=== PATIENT | female | born 1995 | race Caucasian/White ===

== ENCOUNTER 2020-03-17 08:19 | Emergency (ER) | payer BC, SELFPAY ==
--- NOTE | ~2020-03-17 | XR_ITS ---
EXAMINATION: XR hand RT min 3V EXAM DATE: 03/17/2020 08:50 INDICATION: Initial encounter following injury, with pain of the right hand, 2nd finger. Hyperextens ion. TECHNIQUE: Right hand frontal, lateral and oblique projections obtained and reviewed. There is no pr ior study for comparison. FINDINGS: Right metacarpal bones are unremarkable. There are no acute fractures or dislocations iden tified. There is no subcutaneous gas. The soft tissue is unremarkable. There are no radiopaque fo reign bodies. IMPRESSION: No acute osseous findings. Reviewed, dictated and finalized at location B. IMPRESSION: No acute osseous findings.
[2020-03-17 08:35] VITALS: BP 132/80; PULSE 80; RESP 16; TEMP 37.4; O2SAT 100
--- NOTE | 2020-03-17 08:51 | PC.NURSE ---
PT DECLINED ICE FOR COMFORT
--- NOTE | 2020-03-17 09:36 | ED.UPPEXIN ---
HPI - Extremity Injury (Upper) General Chief Complaint: Extremity Injury, Upper Stated Complaint: right hand injury Time Seen by Provider: 03/17/20 09:32 Source: patient and RN notes reviewed Mode of arrival: ambulatory Limitations: no limitations History of Present Illness HPI narrative: Patient presents today with an injury to her right hand that was sustained last night at home while she was carrying a door. A portion of her index finger got caught in a hole in a door when she dropped it, causing it to bed irregularly. She does report some tingling with movement. Currently rates her pain 7/10. She has been applying ice and taking Tylenol and ibuprofen with mild relief. MD complaint: injury to: right and finger Related Data Home Medications Medication Instructions Recorded Confirmed etonogestrel [Nexplanon] 1 implant SUBDERMAL ONCE 03/17/20 03/17/20 Allergies Allergy/AdvReac Type Severity Reaction Status Date / Time No Known Allergies Allergy Verified 03/17/20 09:00 Review of Systems Review of Systems: Narrative: CONSTITUTIONAL: Denies body aches, fever, chills, or sweats. EYES: Denies visual changes, redness, or discharge. ENT: Denies rhinorrhea, congestion, sore throat, or otalgia. CARDIOVASCULAR: Denies chest pain, palpitations, or edema. RESPIRATORY: Denies cough or dyspnea. GASTROINTESTINAL: Denies abdominal pain, nausea, vomiting, or diarrhea. GENITOURINARY: Denies dysuria or hematuria. SKIN: Denies rash, itching, or wounds. MUSCULOSKELETAL: Denies back pain, or myalgia. + Right first finger injury NEUROLOGIC: Denies headache, numbness, tingling, or weakness. PSYCH: Denies depression or anxiety. PMFSH Comments At time of signature, I have reviewed and agree with nursing past medical, surgical, social and family history unless otherwise noted. Please see nursing chart for further information. There is no relevant family history pertinent to the presenting complaint Exam Narrative: Exam Narrative: GENERAL: Well-appearing, well-nourished, and in no acute distress. HEAD: Normocephalic, atraumatic. EYES: EOMI. No redness or drainage. Conjunctivae normal. ENT: Mucous membranes pink and moist. NECK: Normal AROM. CHEST: No respiratory distress. EXTREMITIES: Right hand: Tenderness to the right second PIP and MCP, mostly palmar aspect. Scant swelling of the finger. Decreased range of motion due to pain. Distal sensation intact. Capillary refill normal. No pain in the remainder of the hand. SKIN: Warm, dry, no rash. Capillary refill normal. Normal skin turgor. NEURO: No focal deficits. Alert and oriented x3. Gait steady. PSYCH: Normal affect. No signs of depression or anxiety. Course Vital Signs Vital signs: Vital Signs Temperature 99.3 F 03/17/20 08:35 Pulse Rate 80 03/17/20 08:35 Respiratory Rate 16 03/17/20 08:35 Blood Pressure 132/80 03/17/20 08:35 Pulse Oximetry 100 03/17/20 08:35 Temperature 99.3 F 03/17/20 08:35 Pulse Rate 80 03/17/20 08:35 Respiratory Rate 16 03/17/20 08:35 Blood Pressure 132/80 03/17/20 08:35 Pulse Oximetry 100 03/17/20 08:35 Reviewed. Pt has been instructed to follow up with her PCP regarding her elevated blood pressure today. Procedures Orthopedic Splinting/Casting Injury #1: Splinting/Casting Date: 03/17/20 Splinting/Casting Time: 09:42 Side: right Upper Extremity Injury Location: finger Upper Extremity Immobilizer: aluminum form splint Pre-Procedure Neuro Vascular Exam: normal Post-Procedure Neuro Vascular Exam: normal MDM - Extremity Injury (Upper) Differential Diagnosis Differential diagnosis: Likely other (Finger fracture, finger sprain, contusion) Imaging Data Radiologist's impression: ITS Impressions Hand X-Ray 03/17/20 08:55 IMPRESSION: No acute osseous findings. Critical Care Time Critical Care Time Critical Care Time: No Discharge Hemal
== END 2020-03-17 09:50 | disposition home or self-care (01) ==
PROVIDERS: Emergency Provider Nurse Practitioner
DX: S63.610A Unspecified sprain of right index finger, initial encounter (principal); W23.1XXA Caught, crushed, jammed, or pinched between stationary objects, initial encounter
CPT/HCPCS: 29130; 73130; 99213; G0463

== ENCOUNTER 2020-06-12 08:25 | Emergency (ER) | payer BC, SELFPAY ==
[2020-06-12 08:30] VITALS: BP 118/71; PULSE 93; RESP 16; TEMP 36.8; O2SAT 100
--- NOTE | 2020-06-12 08:36 | ED.SKABFB ---
HPI - Skin/Abscess/Foreign Bdy General Chief complaint: Skin/Abscess/Foreign Body Stated complaint: hives rash Time Seen by Provider: 06/12/20 08:36 Source: patient and RN notes reviewed History of Present Illness HPI narrative: Patient is a 24-year-old female who presents the urgent care with complaints of an itchy red rash to the groin, upper thighs, lower abdomen and bilateral arms. Patient states that she noticed it on Tuesday. 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 Patient denies of any recent yardwork or known exposure. States that she has been taking Benadryl which is not helping. No other acute complaints. Denies any known fever. No acute distress noted. Patient aware of the plan of care. Some parts of this dictation were generated by voice recognition software and may contain typographical and/or grammatical inaccuracies. Related Data Home Medications Medication Instructions Recorded Confirmed etonogestrel [Nexplanon] 1 implant SUBDERMAL ONCE 03/17/20 06/12/20 Allergies Allergy/AdvReac Type Severity Reaction Status Date / Time No Known Allergies Allergy Verified 06/12/20 08:43 Review of Systems Review of Systems: Narrative: CONSTITUTIONAL: Denies fever, chills, or sweats. EYES: Denies visual changes, redness, or discharge. ENT: Denies rhinorrhea, congestion, sore throat, or otalgia. CARDIOVASCULAR: Denies chest pain, palpitations, or edema. RESPIRATORY: Denies cough or dyspnea. GASTROINTESTINAL: Denies abdominal pain, nausea, vomiting, or diarrhea. GENITOURINARY: Denies dysuria or hematuria. SKIN: Reports of itchy red rash to lower abdomen, groin, bilateral inner thighs and bilateral arms MUSCULOSKELETAL: Denies back pain, joint pain, or myalgia. NEUROLOGIC: Denies headache, numbness, or weakness. All other systems reviewed are negative, except as documented in HPI. [facility] Social History Social History Gender identity (if verbalized by the patient): Transgender Male Comments At the time of my signature, I reviewed and agree with the nursing past medical, surgical, social, and family history. There is no relevant family history pertinent to the patient complaint. Exam Narrative: Exam Narrative: GENERAL: This is a well-nourished, well-developed patient, in no apparent distress. Anxious HEAD: normocephalic, atraumatic. EYES: PERRL. Sclera clear/white. Vision is grossly intact. EARS: External ears normal NOSE: External nose normal with no obvious nasal discharge, nares without redness, no rhinorrhea. THROAT: Mucous membranes moist NECK: Neck supple SKIN: Papular erythemic pruritic rash noted to bilateral arms, erythemic urticaria noted to bilateral inner thighs, lower abdomen and groin NEURO: awake, alert, and oriented to person, place and time. There were no obvious focal neurologic abnormalities. EXTREMITIES: No clubbing, cyanosis, or edema. Course Vital Signs Vital signs: Vital Signs Temperature 98.2 F 06/12/20 08:30 Pulse Rate 93 06/12/20 08:30 Respiratory Rate 16 06/12/20 08:30 Blood Pressure 118/71 06/12/20 08:30 Pulse Oximetry 100 06/12/20 08:30 Temperature 98.2 F 06/12/20 08:30 Pulse Rate 93 06/12/20 08:30 Respiratory Rate 16 06/12/20 08:30 Blood Pressure 118/71 06/12/20 08:30 Pulse Oximetry 100 06/12/20 08:30 Reviewed MDM - Skin/Abscess/Foreign Bdy MDM Narrative Medical decision making narrative: Advised the patient to complete steroid regimen as prescribed. Continue to use Benadryl [id number] as needed for itch relief. Use prescription cream to the affected areas, avoiding the groin, underarms and near the eyes. Be sure to change her clothing if you do become sweaty while at work. Wear cotton underwear. While at home, avoid occlusive clothing as much as possible. Do not soak in a hot bath or take v
== END 2020-06-12 09:00 | disposition home or self-care (01) ==
PROVIDERS: Emergency Provider Nurse Practitioner Family
DX: L50.9 Urticaria, unspecified (principal); L25.9 Unspecified contact dermatitis, unspecified cause
CPT/HCPCS: 99213; G0463